=== PATIENT | female | born 1930 | race Two or more races ===

== ENCOUNTER 2017-02-02 08:28 | Day surgery (SDC) | payer MEDICARE, OTHER ==
[2017-01-26 15:00] LABS: ABSOLUTE BASOPHILS # (AUTO) 0.1 10^3/uL (0.0-0.2); ABSOLUTE EOSINOPHILS # (AUTO) 0.1 10^3/uL (0.0-0.6); ABSOLUTE LYMPHOCYTES (AUTO) 1.7 10^3/uL (0.5-4.7); ABSOLUTE MONOCYTES (AUTO) 0.9 10^3/uL (0.1-1.4); ABSOLUTE NEUT (AUTO) 3.9 10^3/uL (1.7-8.2); BASOPHILS % (AUTO) 0.8 % (0-2); EOSINOPHILS % (AUTO) 1.4 % (0-6); HEMATOCRIT 40.8 % (36.0-47.0); HEMOGLOBIN 13.6 g/dL (12.0-15.5); LYMPHOCYTES % (AUTO) 25.9 % (13-45); MEAN CORPUSCULAR HEMOGLOBIN 30.4 pg (27.0-33.4); MEAN CORPUSCULAR HGB CONC 33.4 g/dL (32.0-36.0); MEAN CORPUSCULAR VOLUME 91 fl (80-97); MONOCYTES % (AUTO) 13.2 % (3-13); RED BLOOD COUNT 4.49 10^6/uL (3.72-5.28); RED CELL DISTRIBUTION WIDTH 12.4 % (11.5-14.0); SEGMENTED NEUTROPHILS % (AUTO) 58.7 % (42-78); WHITE BLOOD COUNT 6.7 10^3/uL (4.0-10.5)
[2017-01-26 15:08] LABS: APPEARANCE,URINE CLEAR; BILIRUBIN,URINE NEGATIVE (NEGATIVE); GLUCOSE, URINE NEGATIVE (NEGATIVE); KETONES,URINE NEGATIVE (NEGATIVE); LEUKOCYTE ESTERASE,URINE TRACE (NEGATIVE); NITRITE,URINE NEGATIVE (NEGATIVE); PROTEIN,URINE NEGATIVE (NEGATIVE); URINE SPECIFIC GRAVITY 1.005; UROBILINOGEN,URINE NEGATIVE mg/dL (<2.0)
--- NOTE | 2017-01-26 15:33 | EKG REPORT ---
SEVERITY:- BORDERLINE ECG - SINUS RHYTHM BORDERLINE T ABNORMALITIES, INFERIOR LEADS : Confirmed by: Karina Sims MD 26-Jan-2017 15:32:55
[~2017-02-02 08:28] MED LIST: CEFAZOLIN 1 GM/D5W RTU 1 GM/50 ML RTUPB IV PRN; RINGERS SOLUTION,LACTATED 1,000 ML IV PRN
[2017-02-02] MEDS ORDERED: LIDOCAINE 2% INJ-PF (20 MG/ML) 10 ML AMPUL ONE (09:37)
[2017-02-02] MEDS ORDERED: BUPIVACAINE HCL 0.5 % INJ/PF 30 ML SDV ONE ×2 (09:37→10:12)
[2017-02-02] MEDS ORDERED: LIDOCAINE 2% INJ (20 MG/ML) 20 ML MDV ONE ×2 (09:37→10:12)
[2017-02-02] MEDS ORDERED: PROPOFOL INJ 200 MG/20 ML VIAL IV ONE (10:06)
[2017-02-02] MEDS ORDERED: MIDAZOLAM 2 MG/2 ML INJ ONE (10:06)
[2017-02-02] MEDS ORDERED: DIPHENHYDRAMINE HCL 50 MG/ML VIAL ONE (10:06)
[2017-02-02] MEDS ORDERED: FENTANYL CITRATE INJ/PF 100 MCG/2 ML AMPUL ONE (10:06)
--- NOTE | 2017-02-02 14:18 | [facility]ARE OPERATIVE REPORT E ---
[facility] Oper[facility] Report NAME: RAVINDRA GREGG AGE: 86Y DATE OF SURGERY: 02/02/2017 ROOM: PREOPERATIVE DIAGNOSIS: HALLUX ABDUCTOVALGUS DEFORMITY RIGHT FOOT. POSTOPERATIVE DIAGNOSIS: HALLUX ABDUCTOVALGUS DEFORMITY RIGHT FOOT. OPERATION: Guevara bunionectomy right foot. SURGEON: FIONA ARTHUR D.P.M. INTRAOPERATIVE FINDINGS: Intraoperative findings indicated dislocation of the first metatarsophalangeal joint with severe hypertrophy of the medial eminence of the head of the first metatarsal. Advanced osteoporosis into the first metatarsal, which would not have allowed to perform any reconstructive osteotomies due to the high risk of failure of healing of bone. PROCEDURE: With the patient lying in the dorsal recumbent position, the right foot and leg were prepped and draped in the usual standard sterile orthopedic manner after the local anesthesia was administered which was a total ankle block. After the anesthetic effect was accomplished, attention was directed over the first metatarsophalangeal joint. A curvilinear incision was placed right over the joint. The initial incision was deepened. The superficial and deep subcutaneous tissues were dissected with blunt and sharp dissection. This dissection was carried until the capsular structures were brought into the surgical field. By this time, all bleeders were ligated, all vital structures were identified and protected from surgical trauma. Next, the L inverted capsulotomy was performed. Capsule and periosteal structures were dissected of bone and the head of the first metatarsal was brought into the surgical field. At this point, the hypertrophic portion of the first metatarsal head was visualized and was resected in toto and the head was remodeled to a more anatomical configuration. By resecting the hypertrophic portion of bone, the fact was established that there was advanced osteoporotic changes into the bone. The bone was extremely soft and would not have healed if any reconstructive osteotomies had been performed at this time. At this point, the surgical areas were irrigated with copious amounts of sterile saline solution. The capsular structures were closed with 2-0 Vicryl, the subcutaneous tissue from deep to superficial were closed with 3-0 Vicryl. The skin edges were repositioned and closed with 4-0 nylon using continuous interlocked stitches. Betadine compression dressing was applied around the right foot. This patient tolerated the procedures well and left the operating room with stable vital signs and in good condition. The patient was taken to the recovery room alert, conscious and oriented. There are no permanent disabilities anticipated at this time. DICTATING PHYSICIAN: FIONA ARTHUR D.P.M. [id number] PHY#: [id number] ID: [id number] JOB#: [id number] ACCT: [id number] cc:FIONA ARTHUR D.P.M. >
== END 2017-02-02 12:41 | disposition home or self-care (01) ==
LOC: SC 08:28
PROVIDERS: ATTEND Podiatrist Foot & Ankle Surgery
PROC: 0QBN0ZZ Excision of Right Metatarsal, Open Approach (ICD-10-PCS; principal; 2017-02-02 09:45)
DX: M20.11 Hallux valgus (acquired), right foot (principal); M06.9 Rheumatoid arthritis, unspecified; I10 Essential (primary) hypertension; Z88.5 Allergy status to narcotic agent; Z79.899 Other long term (current) drug therapy
CPT/HCPCS: 93005; 85025; 81001; 93010; 28292; J2250; J3490 ×2; J0690; J1200; J3010; J2704